=== PATIENT | female | born 1995 | race African-American/Black ===

== ENCOUNTER 2023-08-04 09:48 | Emergency (ER) | payer OTHER, SELFPAY ==
[2023-08-04 09:58] VITALS: BP 157/95; PULSE 91; RESP 20; TEMP 36.8; O2SAT 100
--- NOTE | 2023-08-04 10:14 | ED.BACK ---
HPI - Back Pain/Injury General Chief Complaint: Back Pain/Injury <Ana Austin PA-C - Last Filed: 08/04/23 11:47> Stated Complaint: gutierrez, chills, st <INDIRA Arce Last Filed: 08/04/23 11:47> Time Seen by Provider: 08/04/23 10:03 <INDIRA Arce Last Filed: 08/04/23 11:47> Source: patient <INDIRA Arce Last Filed: 08/04/23 11:47> Mode of arrival: ambulatory <INDIRA Arce Last Filed: 08/04/23 11:47> Limitations: no limitations <INDIRA Arce Last Filed: 08/04/23 11:47> History of Present Illness HPI Narrative: This is a 27-year-old female that presents to the emergency department with multiple complaints. Reports cold symptoms over the last couple of days. Reports headache, sore throat, congestion, cough, and chills. Also reports over the last week she has been experiencing low back pain. Reports the pain radiates into her left buttock. No known injury or trauma. Does report it started after twisting her back. Worse with movement and relieved with rest. Denies fevers, shortness of breath, numbness, or weakness. <Ana Austin PA-C - Last Filed: 08/04/23 11:47> Related Data Allergies/Adverse Reactions: Allergies Allergy/AdvReac Type Severity Reaction Status Date / Time latex Allergy Rash Verified 08/04/23 10:01 <INDIRA Arce Last Filed: 08/04/23 11:47> Review of Systems Review of Systems: CONSTITUTIONAL: Denies fever ENT: Reports rhinorrhea, congestion, sore throat CARDIOVASCULAR: Denies edema. RESPIRATORY: Denies dyspnea. GENITOURINARY: Denies dysuria or hematuria. SKIN: Denies rash MUSCULOSKELETAL: Reports back pain, joint pain, and myalgia. NEUROLOGIC: Denies numbness, or weakness. <INDIRA Arce Last Filed: 08/04/23 11:47> All systems reviewed & are unremarkable except as noted in HPI and below <Ana Austin PA-C - Last Filed: 08/04/23 11:47> PMFSH Past Medical History Medical History: Medical History (Updated 08/04/23 @ 11:43 by Ana Austin PA-C) History of hypertension <Ana Austin PA-C - Last Filed: 08/04/23 11:47> Social History Social History: Social History (Updated 08/04/23 @ 10:17 by Ana Austin PA-C) Smoking status: Current every day smoker <Ana Austin PA-C - Last Filed: 08/04/23 11:47> Exam Narrative: GENERAL: Well-appearing, well-nourished, and in no acute distress. HEAD: Normocephalic, atraumatic. EYES: EOMI. ENT: Nares clear, no rhinorrhea or epistaxis. Mucous membranes moist. Oropharynx without tonsillar hypertrophy exudate or other lesions. Bilateral TMs pearly isabel non-bulging NECK: Supple. No adenopathy or masses. CHEST: Clear to auscultation. No respiratory distress. No wheezes rales or rhonchi HEART: Regular rate and rhythm. No murmur heard. Normal peripheral pulses. BACK: No midline spinal tenderness EXTREMITIES: Normal range of motion. No edema. Strength equal in bilateral lower extremities (5/5) SKIN: Warm, dry, no rash. NEURO: No focal deficits. Alert and oriented x3. Normal gait PSYCH: Normal mood and affect <Ana Austin PA-C - Last Filed: 08/04/23 11:47> Course Course Emergency Course: Patient updated on work-up and agrees with plan of care <Ana Austin PA-C - Last Filed: 08/04/23 11:47> AIR ANALYST/PA Physician Supervision I agree with midlevel documentation; I performed the medical decision making component of this evaluation. Patient well-appearing here, ambulate with normal steady gait, no respiratory distress. <Mellisa Mosley MD - Last Filed: 08/04/23 13:45> Vital Signs Vital signs: Vital Signs Temperature 98.2 F 08/04/23 09:58 Pulse Rate 91 08/04/23 09:58 Respiratory Rate 20 08/04/23 09:58 Blood Pressure 157/95 H 08/04/23 09:58 Pulse Oximetry 100 08/04/23 09:58 Oxygen Delivery Room Air 08/04/23 09:58 Temperature 98.2 F 08/04/23 09:58 Pulse Rate
[2023-08-04 10:17] LABS: Appearance Urine Clear (Clear); Bilirubin Urine Negative (Negative); Blood Urine Negative (Negative); Color Urine Yellow (Yellow); Glucose Urine UA Negative (Negative); Ketones Urine Negative (Negative); Leukocyte Esterase Ur Negative LEU/UL (Negative); Nitrate Urine Negative (Negative); Protein Urine Negative (Negative); Specific Grav Ur 1.022 (1.001-1.035); pH Urine 6.5 (5.0-9.0)
[2023-08-04] MEDS: KETOROLAC 30 MG/ML VIAL (*BKC) IM (10:17)
[2023-08-04 10:31] LABS: Add Urine Microscopic? NO
[2023-08-04 10:53] LABS: Strep Group A RT-PCR NOT DETECTED (Negative)
[2023-08-04 11:04] LABS: Influenza A QL RT-PCR Negative (Negative); Influenza B QL RT-PCR Negative (Negative); SARS-CoV-2 RNA PCR Negative (Negative)
== END 2023-08-04 11:52 | disposition home or self-care (01) ==
PROVIDERS: Emergency Provider Physician Assistant
DX: J06.9 Acute upper respiratory infection, unspecified (principal); M54.42 Lumbago with sciatica, left side; Z20.822 Contact with and (suspected) exposure to COVID-19; I10 Essential (primary) hypertension
CPT/HCPCS: 81003; 81025; 87636; 87651; 96372; 99283; J1885